=== PATIENT | male | born 1955 | race Caucasian/White ===

== ENCOUNTER → 2017-05-01 | Outpatient (CLI) | payer BC ==
--- NOTE | 2017-05-01 10:43 | RAD ---
Indication neck pain. No history of injury. Pain for several weeks. Lateral, swimmer's AP and odontoid views were obtained. There is some disc space narrowing at C6-7. Small osteophytes are seen at several levels. An acute finding is not apparent. The prevertebral soft tissues appear normal. IMPRESSION: Modest spondylitic changes. No acute finding seen
== END | disposition home or self-care (01) ==
LOC: DXRADRC 10:14
PROVIDERS: ATTEND Internal Medicine
DX: M43.06 Spondylolysis, lumbar region (principal); M25.512 Pain in left shoulder
CPT/HCPCS: 72040

== ENCOUNTER → 2017-06-06 | Outpatient (CLI) | payer BC ==
--- NOTE | 2017-06-06 12:40 | RAD ---
CT head and CT cervical spine without 06/06/2017 Clinical indication: Pain on the left side of the neck for one month. Technique: Multiple CT noncontrast images of the head and C-spine were obtained according to standard protocol. Frontal and sagittal reformations of the cervical spine were obtained. PQRS Compliance Statement: One or more of the following individualized dose reduction techniques were utilized for this examination: 1. Automated exposure control 2. Adjustment of the mA and/or kV according to patient size 3. Use of iterative reconstruction technique Findings: Head: There is moderate posterior left parieto-occipital encephalomalacia and gliosis with ex vacuo dilatation of the left lateral ventricle atria compatible with old infarct. No acute intracranial hemorrhage or extra axial fluid collection. The douglas-white matter interfaces are otherwise maintained. No midline shift. The globes and orbits are unremarkable. Mastoid air cells and visualized paranasal sinuses are well-aerated. Cervical spine: No acute cervical spine fracture or subluxation. There is moderate atlantodens arthrosis without associated widening. Vertebral body heights are maintained. There is multilevel disc degeneration of the cervical spine greatest to a moderate to severe degree at C6-C7 mild C4-C5 C5-C6 and C7-T1. At C6-C7, there is disc space narrowing and marginal osteophyte formation and subchondral cyst formation. Segmental analysis: At C2-C3, left uncovertebral and facet hypertrophy results in moderate left neural foraminal narrowing and no significant spinal canal narrowing. At C3-C4, mild left facet hypertrophy with no significant neural foraminal narrowing. At C4-C5, mild right facet hypertrophy with no significant neuroforaminal or spinal canal narrowing. At C5-C6, no significant spinal canal or neural foraminal narrowing. At C6-C7, uncovertebral and facet hypertrophy and posterior disc osteophyte complex resulting in moderate bilateral and moderate spinal canal narrowing. At C7-T1, there is no significant spinal canal or neural foraminal narrowing. The paraspinal soft tissues are unremarkable. The visualized lung apices are clear. Impression: Head: 1. 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 Cervical spine: 1. No acute cervical spine fracture or subluxation. 2. Cervical spondylosis resulting in multilevel neural foraminal narrowing, greatest to moderate degree, on the left at C2-C3 and bilaterally at C6-C7. 3. Degenerative spinal canal narrowing, greatest to a moderate degree, at C6-C7. If further evaluation of degenerative spinal canal and neural foraminal stenosis is clinically indicated, MRI without contrast could be obtained.
== END | disposition home or self-care (01) ==
LOC: LAB 08:56
PROVIDERS: ATTEND Internal Medicine
DX: M50.321 Other cervical disc degeneration at C4-C5 level (principal); M50.322 Other cervical disc degeneration at C5-C6 level; M50.323 Other cervical disc degeneration at C6-C7 level; M47.892 Other spondylosis, cervical region; R51 Headache
CPT/HCPCS: 70450; 72125

== ENCOUNTER 2018-04-13 00:32 | Emergency (ER) | payer OTHER, BC ==
[~2018-04-13] VITALS: Ht 180.3 cm; Wt 120.2 kg
--- NOTE | 2018-04-13 01:34 | ED.ADGEN ---
Adult General HPI HPI Patient is a 63 year old male who presents with snake bite. 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 He was on roving watch when he was entering a shed. He perceives some movement to his right. Immediately following that, the patient sustained a snake bite. He did not get a good look at the snake. It was dark. He perceive that it was brown in color in the brief seconds that he did look at it. He was immediately referred to the emergency department. Regarding symptoms, he did have some feelings of flushing, he had some nausea. He had some pain at the site which is on the right arm. Review of Systems Review of Systems Constitutional: Denies fever or chills Eyes: Denies change in visual acuity HENT: Denies nasal congestion Respiratory: Denies cough or shortness of breath Cardiovascular: No additional information not addressed in HPI GI: Denies abdominal pain Musculoskeletal: Denies back pain or joint pain Integument: Denies rash or skin lesions Neurologic: Denies headache Endocrine: Denies polyuria All other systems were reviewed and found to be within normal limits, except as documented in this note. Current Medications Current Medications Current Medications Medications (Trade) Dose Ordered Sig/Victorino Start Time Stop Time Status Last Admin Dose Admin Acetaminophen (Tylenol) 1,000 mg 1X ONCE 04/13/18 02:45 04/13/18 03:10 DC 04/13/18 02:50 1,000 MG Sodium Chloride 1,000 ml @ 40 mls/hr 1X ONCE 04/13/18 02:30 04/14/18 03:29 04/13/18 00:40 40 MLS/HR Allergies Allergies Allergies Coded Allergies Type Severity Reaction Last Updated Verified Penicillins Allergy Unknown 04/13/18 Yes Physical Exam Physical Exam Constitutional: Well developed, well nourished, no acute distress, non-toxic appearance. HENT: Normocephalic, atraumatic, bilateral external ears normal, oropharynx moist Eyes: PERRLA, EOMI, conjunctiva normal, no discharge Neck: Normal range of motion, no tenderness Cardiovascular:Heart rate regular rhythm Lungs & Thorax: Bilateral breath sounds clear to auscultation Abdomen: Bowel sounds normal, soft Skin: Warm, dry, no erythema, no rash. Extremities: The deltoid muscle, there are 2 saying mendoza. There is local swelling but no acute erythema. The rest of the exam including the skin exam in that extremity are normal. Neurologic: Alert and oriented X 3 Psychologic: Affect normal, judgement normal, mood normal Current Patient Data Vital Signs Vital Signs Date Time Temp Pulse Resp B/P (MAP) Pulse Ox O2 Delivery O2 Flow Rate FiO2 04/13/18 00:32 98.4 78 20 98 Lab Results Laboratory Tests Test 04/13/18 01:10 White Blood Count 2.4 x10^3/uL (4.0-11.0) L Red Blood Count 5.24 x10^6/uL (4.30-5.70) Hemoglobin 14.8 g/dL (13.0-17.5) Hematocrit 43.7 % (39.0-53.0) Mean Corpuscular Volume 83 fL (79-100) Mean Corpuscular Hemoglobin 28 pg (25-35) Mean Corpuscular Hemoglobin Concent 34 g/dL (31-37) Red Cell Distribution Width 14.4 % (11.5-14.5) Platelet Count 175 x10^3/uL (140-400) Neutrophils (%) (Auto) 45 % (31-73) Lymphocytes (%) (Auto) 34 % (24-48) Monocytes (%) (Auto) 16 % (0-9) H Eosinophils (%) (Auto) 4 % (0-3) H Basophils (%) (Auto) 1 % (0-3) Neutrophils # (Auto) 1.1 x10^3uL (1.8-7.7) L Lymphocytes # (Auto) 0.8 x10^3/uL (1.0-4.8) L Monocytes # (Auto) 0.4 x10^3/uL (0.0-1.1) Eosinophils # (Auto) 0.1 x10^3/uL (0.0-0.7) Basophils # (Auto) 0.0 x10^3/uL (0.0-0.2) Segmented Neutrophils % 43 % (35-66) Lymphocytes % 29 % (24-48) Atypical Lymphocytes % (Manual) 4 % (0-0) H Monocytes % 16 % (0-10) H Eosinophils % 8 % (0-5) H Platelet Estimate Adequate (ADEQUATE) Prothrombin Time 11.2 SEC (9.4-11.4) Prothrombin Time INR 1.1 (0.9-1.1) PTT 25 SEC (23-33) D-Dimer (Connie) 1.24 mg/L (0.00-0.50) H Sodium Level 140 mmol/L (136-145) Potassium Level 4.2 mmol/L (3.5-5.1) Chloride Level 104 mmol/L (98-107) Carbon Dioxide Level 26 mmol/L (21-32) Anion Gap 10 (6-14) Blood Urea Nitrogen 9 mg/dL (8-26) Creatinine 1.1 mg/dL (0.7-1.3) Estimated GFR (Cockcroft-Gault) 68.1 Glucose Level 214 mg/dL (70-99) H Calcium Level 8.7 mg/dL (8.5-10.1) Creatine Kinase 323 U/L (39-308) H EKG EKG [] Radiology/Procedures Radiology/Procedures [] Course & Med Decision Making Course & Med Decision Making Pertinent Labs and Imaging studies reviewed. (See chart for details) Patient was evaluated on arrival. He has a snake bite to the right arm. The bite just happened within the hour. He has no symptoms to suggest acute envenomation but these may develop. Basic labs are ordered per snake bite protocol. Patient will be observed in the emergency department for 4-6 hours. EKG is completed and is normal. 02:30: Patient is reexamined. The bite paula on his arm is improved. The localized swelling that was present earlier is now resolving. There is no worsening erythema. His labs are reviewed. His d-dimer is mildly elevated. His CK is also at the upper end of normal. The rest of his labs are unremarkable. Given his improvement in symptoms, this likely represents a dry bite. Plan will be to continue to observe the patient for a period of 4 hours. He only complains currently of a headache. Tylenol is ordered. 04:10: No new symptoms. Wound is very well-appearing. Plan is for discharge home and patient is agreeable. No swelling or erythema at the bite site. Antibiotics are not indicated for empiric coverage in snake bite victims although risk of secondary infection does exist. He is advised to return to the ER if he develops any additional symptoms. Otherwise, f/u with occupational health as directed by his employer. Tetanus is UTD. Final Impression Final Impression Snake Bite to Right Arm Dragon Disclaimer Mike Disclaimer This electronic medical record was generated, in whole or in part, using a voice recognition dictation system. HORTENCIA HDEZ DO Apr 13, 2018 01:34
[2018-04-13 01:38] LABS: CALCIUM 8.7 mg/dL (8.5-10.1); CREATININE 1.1 mg/dL (0.7-1.3); GFR 68.1; POTASSIUM 4.2 mmol/L (3.5-5.1)
[2018-04-13 01:40] LABS: BASO % 1 % (0-3); EOS # 0.1 x10^3/uL (0.0-0.7); EOS % 4 % (0-3); HEMATOCRIT 43.7 % (39.0-53.0); HEMOGLOBIN 14.8 g/dL (13.0-17.5); LYMPH # 0.8 x10^3/uL (1.0-4.8); LYMPH % 34 % (24-48); MEAN CORPUSCULAR HEMOGLOBIN 28 pg (25-35); MEAN CORPUSCULAR HGB CONC 34 g/dL (31-37); MEAN CORPUSCULAR VOLUME 83 fL (79-100); MONO # 0.4 x10^3/uL (0.0-1.1); MONO % 16 % (0-9); NEUT # 1.1 x10^3uL (1.8-7.7); NEUT % 45 % (31-73); PLATELET COUNT 175 x10^3/uL (140-400); RED BLOOD COUNT 5.24 x10^6/uL (4.30-5.70); RED CELL DISTRIBUTION WIDTH 14.4 % (11.5-14.5); WHITE BLOOD COUNT 2.4 x10^3/uL (4.0-11.0)
[2018-04-13 02:29] LABS: % ATYL 4 % (0-0); % EOS 8 % (0-5); % LYMPHS 29 % (24-48); % MONOS 16 % (0-10); % SEGS 43 % (35-66)
[2018-04-13 02:30] LABS: PLT ESTIMATE ADEQUATE (ADEQUATE)
[2018-04-13] MEDS ORDERED: IV NORMAL SALINE 1,000ML 1,000 ML IV ONE (02:30)
[2018-04-13] MEDS ORDERED: ACETAMINOPHEN 500 MG TABLET PO ONE (02:45)
[2018-04-13 04:00] VITALS: BP 142/71
--- NOTE | 2018-04-13 05:45 | EKG ---
[address] [address] Test Date: 2018-04-13 Test Time: 01:07:25 Pat Name: RIVER ESPITIA Department: Room: Gender: M [employer] Instructor: JONAH : [id number] Requested By: HORTENCIA HDEZ Order Number: [id number] Reading MD: Measurements Intervals [place] Rate: 73 P: 39 TN: 152 QRS: 25 QRSD: 94 T: 21 QT: 362 QTc: 402 Interpretive Statements SINUS RHYTHM NORMAL ECG RI6.01 No previous ECG available for comparison
== END 2018-04-13 04:00 | disposition home or self-care (01) ==
LOC: ER 00:32
DX: T63.001A Toxic effect of unspecified snake venom, accidental (unintentional), initial encounter (principal); Z88.0 Allergy status to penicillin; Y92.89 Other specified places as the place of occurrence of the external cause
CPT/HCPCS: 36415; 80048; 82550; 85007; 85025; 85379; 85610; 85730; 93005; 99285-25; J7030